=== PATIENT | female | born 1945 | race Caucasian/White ===

== ENCOUNTER 2016-11-13 07:03 | Inpatient (IN) | payer MEDICARE, BC ==
--- NOTE | ~2016-11-13 | DS ---
Discharge Summary [facility] [address] [facility] [place]. [address] NAME: ZORA ROBERTS : 45 STATUS : DIS IN PAT#: [id number] AGE: 71 ADM/REG DATE : 11/13/16 MR#: [id number] REPORT SERV DATE: 11/19/16 DICTATED BY: DEJON BARNETT DATE: 11/18/16 REPORT STATUS : Draft TRANSCRIBED BY: MODL DATE: 11/18/16 ADMISSION DATE: 11/13/2016 DISCHARGE DATE: 11/17/2016 DIAGNOSES: 1. Hypoxic respiratory failure, acute. 2. Chronic obstructive pulmonary disease exacerbation. 3. Pneumonia. 4. Sepsis. 5. Type 2 diabetes. 6. Sinus tachycardia, resolved. 7. History of chest pain with demand ischemia, resolved. CONSULTANTS: [employer], Dr. Deonte Kaba. HOSPITALIST: Dr. Tyree Metcalf; Dr. Barnett. IMAGING: CTA of the chest, with contrast showed no well-defined filling defect within the central pulmonary artery circulation or segmental pulmonary arteries to suggest PE, although evaluation of the peripheral pulmonary artery branches is not optimal. No thoracic aortic aneurysm nor dissection. Tree-in-bud infiltrates in the upper and lower lobes of both lungs. Chronic right middle lobe and posterior lingula consolidation, similar to January 2013, likely fibrosis. Subpleural nodules in the posterior left lower lobe measuring approximately millimeters. Mild upper lobe emphysematous changes in the lungs. Heavy coronary artery calcification and/or previous stenting. Stable left renal cyst. Suggest follow up CT scan of the chest in 12 months for further evaluation. Closer interval follow up in both lungs may be appropriate. Read by Dr. Lomax. HOSPITAL COURSE: This is a 71-year-old female with a past medical history of COPD and ongoing tobacco abuse, type 2 diabetes with peripheral neuropathy, chronic pain on chronic narcotics, presented with shortness of breath, dyspnea on exertion with generalized body aches with a positive cough with productive of brown sputum. She was admitted to the Hospitalist Service with sepsis and acute hypoxic respiratory failure and some signs of chest pain. The patient was initiated on antibiotics and bronchodilators. Blood cultures were ordered. Also, Cardiology with Dr. Deonte Kaba was consulted for the patient's complaint of chest discomfort and diagnosed with demand ischemia secondary to the patient's sepsis and COPD exacerbation with pneumonia. They recommended no further cardiac testing anticipated. The patient was initially admitted on a heparin drip, per Dr. Metcalf, however, during the patient's hospital course, the patient had severe noncompliance, at times refused appropriate medical management and required educating multiple times by physicians, nursing staff, including the house microsoft exchange administrator. The patient also was educated on tobacco abuse cessation, several times the patient demanding to leave the [facility]x without oxygen. The patient remained alert and oriented x3. Also, the patient was very adamant about not being discharged with oxygen at the time of discharge. Therefore, the patient was encouraged to work aggressively with pulmonary toileting with incentive spirometer as instructed as well as to continue with her medical management with bronchodilators and antibiotics. On Discharge Summary [address] [place]. [address] NAME: ZORA ROBERTS : 45 STATUS : DIS IN PAT#: [id number] AGE: 71 ADM/REG DATE : 11/13/16 MR#: [id number] REPORT SERV DATE: 11/19/16 DICTATED BY: DEJON BARNETT DATE: 11/18/16 REPORT STATUS : Draft TRANSCRIBED BY: DAVID DATE: 11/18/16 11/17/2016, the patient once again began threatening to leave AMA. The patient was informed about the risks of leaving against medical advice. The patient at that time was still on 4 L of oxygen requirement and the patient was refusing to be discharged to home with oxygen, therefore medical staff working with the patient to attempt to improve pulmonary toileting more in order to wean the patient off oxygen prior to discharge, however, the patient demanded to be discharged that day. The patient's family member, her niece, who is her primary caregiver, was informed, who also encouraged the patient to comply, however, the patient refused. Also, the patient stated that she refused to continue with any oxygen. The patient was informed that not continuing with oxygen at this time can be lethal and very dangerous to health and/or patient could , and the patient still refused and stated that she was going to home without oxygen and signed out against medical advice and family/friend reportedly took the patient home. We made several attempts on multiple occasions to reason with Ms. Roberts who refused to compliant with her medical treatment. The patient stated that her brother on oxygen, and she refused to remain on it although may be lifesaving. DICTATED BY: Shannon ThomasH/DAVID Dejon Barnett M.D. / [id number] CC: Shannon Thomas M.D.
--- NOTE | ~2016-11-13 | CN ---
Consultation Report [facility] [address] [place]. [address] NAME: ZORA ROBERTS : 45 STATUS : ADM IN PAT#: [id number] AGE: 71 ADM/REG DATE : 11/13/16 MR#: [id number] REPORT SERV DATE: 11/13/16 DICTATED BY: DEONTE BEARD DATE: 11/13/16 REPORT STATUS : Draft TRANSCRIBED BY: MODL DATE: 11/13/16 CARDIOLOGY CONSULTATION DATE OF CONSULTATION: 11/13/2016 PRIMARY EYE PHYSICIAN: Dr. Schultz. REASON FOR CONSULTATION: Demand ischemia. HISTORY OF PRESENT ILLNESS: Ms. Roberts is a 71-year-old female presented to the ER with four to five days of worsening shortness of breath, productive cough, subjective fevers, and diffuse myalgias. She has a known history of coronary artery disease and COPD with ongoing tobacco use. On presentation to the ER, she appeared ill and had a sinus tachycardia at 130 beats per minute. She underwent a CTA of the chest due to shortness of breath and sinus tachycardia that showed no pulmonary embolism and a normal thoracic aorta. A "tree-in-bud" diffuse infiltrative pattern was seen suggestive of viral versus atypical pneumonia. She is admitted to the Hospitalist Service and given nebulizers, steroids, antibiotics, and oxygen, and now feels better. Heart rate has improved to the 70s. She still has complaints of diffuse myalgias. She has had no symptoms of exertional angina. She has had no palpitations or syncope. She denies lower extremity edema. On arrival, her troponin was 0.09. She had sinus tachycardia with underlying right bundle- branch block that was chronic and unchanged. Of note, she did undergo an evaluation in 05/2016 with an echocardiogram demonstrating preserved EF of 55% with a focal basal inferior wall infarct that was holding chronic. A 05/2016 coronary angiography showed diffuse nonobstructive CAD with patent stents. Moderate disease in LAD with a negative FFR. She had diffuse branch vessel and distal disease noted for medical management only. REVIEW OF SYSTEMS: Pertinent positives and negatives are as outlined above, all others negative. PAST MEDICAL HISTORY: 1. CAD, status post LAD and RCA LISANDRO. 2. COPD. 3. Ongoing tobacco use. 4. Hypertension. 5. Hyperlipidemia. 6. Diabetes mellitus type 2. 7. Peripheral arterial disease. CURRENT HOME MEDICATIONS: 1. Atorvastatin 40 mg at bedtime. 2. Aspirin 81 mg daily. 3. Plavix 75 mg daily. Consultation Report [place] [address] [place]. [address] NAME: ZORA ROBERTS : 45 STATUS : ADM IN PAT#: [id number] AGE: 71 ADM/REG DATE : 11/13/16 MR#: [id number] REPORT SERV DATE: 11/13/16 DICTATED BY: DEONTE BEARD DATE: 11/13/16 REPORT STATUS : Draft TRANSCRIBED BY: DAVID DATE: 11/13/16 4. Isosorbide 40 mg daily. 5. Metoprolol 100 mg in the morning and 50 mg in the evening. 6. Clonidine 0.2 mg daily p.r.n. 7. Xanax as directed. 8. ProAir inhaler. 9. Vitamin D supplementation. 10.Celexa 20 mg daily. 11.Gabapentin 300 mg three times daily. 12.[place] p.r.n. 13.Robaxin 250 mg twice daily. 14.Pantoprazole 40 mg daily. 15.Theophylline as directed. 16.Requip 1.5 mg at bedtime. 17.Ambien 5 mg at bedtime p.r.n. ALLERGIES: INCLUDE WHICH IS EXACERBATED GI BLEED. CODEINE WITH AN UNKNOWN REACTION. TETRACYCLINE WITH AN UNKNOWN REACTION. STADOL WITH AN UNKNOWN REACTION. SOCIAL HISTORY: She has ongoing tobacco use. She does not consume alcohol or use illegal drugs. FAMILY HISTORY: Significant for CAD. PHYSICAL EXAMINATION: VITALS: Temperature is 99, pulse is 70, respirations 18, and blood pressure is 120/70. GENERAL: A well-developed, chronically ill-appearing female, who is currently in no acute distress. HEENT: Sclerae anicteric, mucous membranes moist and without lesions. NECK: No jugular venous distention. No hepatojugular reflux, carotid upstrokes 2+ and symmetric, there are no carotid or subclavian bruit. LUNGS: Moderately decreased breath sounds throughout with no wheezes or crackles. CARDIOVASCULAR: Regular with a distant S1 and S2. No audible S3. No audible murmurs. No parasternal lift. ABDOMEN: Soft, nontender. Bowel sounds positive and normoactive. PULSES: Radial and dorsalis pedis pulses are all 1+ and symmetric. EXTREMITIES: Warm, and there is no edema. SKIN: No clubbing or cyanosis, no rashes or lesions. IMPRESSION: 1. Demand ischemia. 2. Sepsis syndrome, presenting with tachycardia, fevers, and leukocytosis. 3. Acute exacerbation of chronic obstructive pulmonary disease. 4. Pneumonia, viral versus atypical bacterial. 5. Coronary artery disease, status post PCI. 6. Peripheral arterial disease. Consultation Report [place] [facility] [id number]. [address] NAME: ZORA ROBERTS : 45 STATUS : ADM IN [facility]#: [id number] AGE: 71 ADM/REG DATE : 11/13/16 MR#: [id number] REPORT SERV DATE: 11/13/16 DICTATED BY: DEONTE BEARD. DATE: 11/13/16 REPORT STATUS : Draft TRANSCRIBED BY: MODL DATE: 11/13/16 7. Hypertension. 8. Hyperlipidemia. 9. Diabetes mellitus 2. 10.Ongoing tobacco use. PLAN: Ms. Roberts's presentation is most consistent with demand ischemia due to her known underlying CAD, recently assessed in May of this year with stable findings and her acute presentation with acute exacerbation of COPD, pneumonia, and sepsis syndrome. I agree with home medications as well as heparin for now while troponin is being trended. No further cardiac testing anticipated unless clinical symptoms or significant upward trend in troponin dictate. AEA/LAURIEL Deonte Beard M.D. / [id number] CC: Tyree Metcalf M.D. Joe Torres M.D.
--- NOTE | ~2016-11-13 | HP ---
History And Physical [place] [address] [facility] [place]. [address] NAME: ZORA ROBERTS : 45 STATUS : ADM IN PAT#: [id number] AGE: 71 ADM/REG DATE : 11/13/16 MR#: [id number] REPORT SERV DATE: 11/13/16 DICTATED BY: SYLVIA METCALF DATE: 11/13/16 REPORT STATUS : Draft TRANSCRIBED BY: MODL DATE: 11/13/16 DATE OF ADMISSION: 11/13/2016 IDENTIFYING DATA: A 71-year-old white female, whose PCP is Dr. Joe Torres, Cardiology, Dr. Schultz. CHIEF COMPLAINT: Shortness of breath and generalized body pain. HISTORY OF PRESENT ILLNESS: This history of present illness is obtained by talking directly with the patient as well as the ER nurse and the ER physician, Dr. Ronal Giraldo, and I reviewed the ER chart and [employer]. The patient states she was doing yard sale to try to raise money for a [employer]. She camped out in a tent for a couple of days this week, then a couple days prior to this admission started to have generalized pain all over, increased cough, difficulty voiding urine, dysuria, right lower quadrant pain with voiding, increased sputum that was brown in color, and it finally got so bad she came to the emergency room where she was noted to have tachycardia, hypoxia, and bilateral pulmonary infiltrates, and we were asked to admit her to the hospital. REVIEW OF SYSTEMS: She has had subjective fever. She has had some left anterior chest pain, constant, lasting for many hours worse with a cough. She has nausea. She had diarrhea a day ago. She has had occasional leg edema. She has chronic headaches that she calls migraines. She states her weight has gone up and down. She denies vomiting, bright red blood per rectum, melena, or rash. ALLERGIES: SHE CLAIMS ALLERGY TO CODEINE, TETRACYCLINE, SULFA, STADOL. PAST MEDICAL HISTORY: She denies any history of seizure, liver disease, chronic kidney disease, kidney stones, thyroid disease, or sleep apnea. She was here May 2016 with some slurred speech, some right-sided facial droop. MRI of the brain at that time unremarkable. MRA of the brain, 50% left M1 stenosis. MRA of the neck unremarkable. She was thought to possibly have had a TIA. Heart cath done on 06/15/2016 showed extensive stenting of the proximal to distal RCA with patent stents, extensive stenting from the proximal to the mid LAD and distal LAD, moderate disease within the mid LAD, non flow limiting. Moderate non flow limiting disease within the left circumflex. Distal branch vessel disease involving a diminutive distal segment of the second obtuse marginal. She was recommended for overall medical therapy, although she tells me that she had new stents put in. Echocardiogram performed on 06/14/2016 showed left atrium 2.9 cm, left ventricular ejection fraction 50-55%, small area of inferior and inferior septal basilar hypokinesis. The patient has a history of at least seven prior stents. She had an old septal [place] in 2001. She has a history of COPD. She still smokes, she is trying to cut down. She is down from a History And Physical [address] [address] NAME: ZORA ROBERTS : 45 STATUS : ADM IN [facility]#: [id number] AGE: 71 ADM/REG DATE : 11/13/16 MR#: [id number] REPORT SERV DATE: 11/13/16 DICTATED BY: SYLVIA METCALF DATE: 11/13/16 REPORT STATUS : Draft TRANSCRIBED BY: DAVID DATE: 11/13/16 pack a day to half pack per day. She smoked for over 55 years. She has hypertension. She has had greater than 10 years of diabetes mellitus type 2. She has peripheral neuropathy. She has a history of depression, anxiety, insomnia, narcolepsy, restless legs, and chronic pain involving fibromyalgia, back pain, headache pain, and peripheral neuropathy pain. She had prior injury to her right eye, she has very little vision left in it. She has had previous stomach ulcer. She had uterine cancer treated with surgery. She has had herpes zoster in the past. HOME MEDICATIONS: Albuterol p.r.n., Xanax 1 mg t.i.d. p.r.n., aspirin 81 mg daily, Plavix 75 mg daily, Lipitor 40 mg daily, biotin 5000 mcg daily, vitamin D 1000 units daily, Celexa 20 mg daily, Catapres 0.2 mg daily, gabapentin 300 mg t.i.d., Fisk 7.5 one q.i.d. p.r.n. pain., Monoket 40 mg daily, metformin extended release 500 mg b.i.d., Robaxin 250 mg twice a day, metoprolol 100 mg every morning and 50 mg every evening, Protonix 40 mg daily, Robitussin liquid p.r.n. cough, Requip 1.5 mg at bedtime, Uniphyl 200 mg daily, and Ambien 5 mg at bedtime p.r.n. insomnia. PAST SURGICAL HISTORY: She has had cholecystectomy, hysterectomy. She had an exploratory laparoscopy. She had some surgical attempt on her right eye. FAMILY HISTORY: Mother had congestive heart failure. Dad reportedly had prostate and colon cancer. Siblings with heart attacks, children with heart disease. DIAGNOSTIC DATA: Chest x-ray done as a single portable film today reveals some bibasilar haziness especially in the right lower lobe and lingula per my interpretation. CT scan of the chest as a CTA performed in the emergency room reveals no evidence of central pulmonary embolism. Poor visualization of the peripheral vessels because of movement. She has bilateral tree in bud infiltrates in upper and lower lobes, felt to be infectious or inflammatory. No evidence of thoracic aorta aneurysm or dissection. Chronic medial right middle lobe, posterior lingular consolidation consistent with fibrosis all the way back to 02/10/2013. Subpleural nodule posterior left lower lobe, stable since 02/10/2013. Mild upper lobe COPD, bilateral. Heavy coronary calcification and stenting. Left renal cyst noted. EKG done today at 0356 hours reveals sinus tachycardia at 132 beats per minute. An incomplete right bundle-branch block. She has T-wave inversions in II, III, aVF, as well as V1 through V4. Arterial blood gas done today on room air: PH 7.42, pCO2 of 38, PO2 of 54, bicarbonate 24.2. Sodium 139, potassium 3.4, chloride 104, CO2 is 26, BUN 28, creatinine 1.12, glucose 223, albumin 3.0, globulin 4.7. The rest of the CMP is normal. Troponin 0.91. B-natriuretic peptide elevated at 253.8. White count elevated at 17, hemoglobin 14.5, platelets 270,000. I did not get a baseline PT, PTT, and INR, and she is already on a heparin drip. Urinalysis straight cath in the ER because she stated she could not void, protein 30, specific gravity 1.041, the rest of it was unremarkable. PHYSICAL EXAMINATION: VITAL SIGNS: Temp is 98, pulse 115, respirations 24, blood pressure 120/70, O2 saturation is currently 94% on 2 L. GENERAL: Well-developed, older female who appears very tired with mild shortness of breath. HEENT: Head is atraumatic. Pupil on the right side shows trauma with an abnormal displaced pinpoint pupil inferiorly and medially with minimal vision of that right eye. Pupil History And Physical [address] [place]. [address] NAME: ZORA ROBERTS : 45 STATUS : ADM IN PAT#: [id number] AGE: 71 ADM/REG DATE : 11/13/16 MR#: [id number] REPORT SERV DATE: 11/13/16 DICTATED BY: SYLVIA METCALF DATE: 11/13/16 REPORT STATUS : Draft TRANSCRIBED BY: DAVID DATE: 11/13/16 reaction on the left is normal. Extraocular motions are intact. No scleral icterus noted. Ear canals and TMs unremarkable. Normal hearing bilaterally. Nose, noninflamed externally. Septum midline. Nares patent. Mouth, moist. Good gag. No redness of the throat, gums, or lips. NECK: Supple. No lymph node or thyroid enlargement. She has a bug bite about a millimeter in diameter in left neck right at the sternocleidomastoid in the midportion, mildly red. Carotids have good pulses. No bruits. LUNGS: Prolonged expiratory phase, 2+ rhonchi in all gamez with mildly increased respiratory effort. HEART: Tachycardic and regular without gallop, click, murmur, or rub. ABDOMEN: Bowel sounds positive. Soft. Nondistended, nontender. No masses. No organomegaly. No bruits. EXTREMITIES: Warm, good pulses. No clubbing, no cyanosis, no edema. No actively inflamed skin or joints other than that bug bite described under neck above. NEUROLOGICAL: She is alert, she is oriented. She is complaining of pain all over her body. Her motor strength is 2/5 in her legs, 3/5 in her hands bilaterally. No Babinski. No clonus noted. Cranial nerves 2 through 12 grossly normal. ASSESSMENT: 1. Subjective fever with increased cough, change in sputum production, and increased shortness of breath which is most consistent with acute exacerbation of chronic obstructive pulmonary disease in an active smoker, not on home oxygen, and she has bilateral upper lobe infiltrates consistent with community-acquired pneumonia. 2. Chest pain, probably demand ischemia, less likely non ST-elevation myocardial infarction. 3. Acute hypoxic respiratory failure. 4. I doubt urinary tract infection, but she may have some urinary retention symptoms. 5. Sinus tachycardia probably due to subjective fever, chest pain, and acute hypoxic respiratory failure but also could be aggravated by her theophylline. 6. See past medical history. PLAN: 1. Admit to cardiac telemetry unit. 2. Continue heparin drip for now and get a series of cardiac enzymes. Also ask Cardiology to see her in consultation. 3. We will check a procalcitonin as well as urine antigens. We are also going to check theophylline level and TSH. We will also have nursing check postvoid bladder scan. We will continue azithromycin and Rocephin. We will continue supplemental oxygen and nebulizer treatments. Blood cultures and sputum cultures already obtained. RSG/MODL Sylvia Metcalf M.D. History And Physical [address] [address] NAME: ZORA ROBERTS : 45 STATUS : ADM IN [facility]#: [id number] AGE: 71 ADM/REG DATE : 11/13/16 MR#: [id number] REPORT SERV DATE: 11/13/16 DICTATED BY: SYLVIA METCALF DATE: 11/13/16 REPORT STATUS : Draft TRANSCRIBED BY: MODL DATE: 11/13/16 / [id number] CC: Shannon Magana Jr., M.D.
[2016-11-13 04:31] LABS: BE (BASE EXCESS) -0.1 MEQ/L (0 +/- 2.5); HCO3 (ACTUAL BICARBONATE) 24.2 MEQ/L (23-27); INSTRUMENT SERIAL # 8087; METHEMOGLOBIN 0.4 % (0-3); PCO2 (CO2 TENSION) 38 MMHG (35-45); PO2 (O2 TENSION) 54 MMHG (79-93); pH 7.42 (7.37-7.43)
[2016-11-13 04:32] LABS: O2 CONTENT 18.2 VOL% (18-24); OPERATOR ID 17589; SAMPLE Arterial
[2016-11-13 04:44] LABS: BASOPHILS 0.1 %; BASOPHILS ABSOLUTE 0.01 10/3/uL (0.0-0.16); EOSINOPHILS 0.1 %; EOSINOPHILS ABSOLUTE 0.02 10/3/uL (0.0-0.53); HEMATOCRIT 42.8 % (36.0-48.0); HEMOGLOBIN 14.5 g/dL (12.0-16.0); IMMATURE GRANULOCYTES 0.3 %; IMMATURE GRANULOCYTES ABSOLUTE 0.05 10/3/uL (0.0-0.11); LYMPHOCYTES 16.1 %; LYMPHOCYTES ABSOLUTE 2.73 10/3/uL (0.67-4.30); MEAN CORPUS HGB CONC 33.9 g/dL (32.0-36.0); MEAN CORPUSCULAR HEMOGLOB 30.3 pg (26.0-34.0); MEAN CORPUSCULAR VOLUME 89.4 fL (80-100); MEAN PLATELET VOLUME 10.2 fL (9.2-13.0); MONOCYTES 8.9 %; MONOCYTES ABSOLUTE 1.52 10/3/uL (0.21-1.20); NEUTROPHILS 74.5 %; NEUTROPHILS ABSOLUTE 12.67 10/3/uL (2.02-8.40); RBC DISTRIBUTION WIDTH 13.7 % (12.0-16.0); RED CELL COUNT 4.79 10/6/uL (4.0-5.6)
[2016-11-13 04:45] LABS: ER CBC TAT 0 Hrs 05 Mins; MANUAL DIFF NO %; PLATELET COUNT 270 10/3/uL (150-400)
[2016-11-13 05:04] LABS: A/G RATIO 0.6 (0.7-1.9); ALKALINE PHOSPHATASE 86 U/L (45-117); BUN (BLOOD UREA NITROGEN) 28 MG/DL (6-23); CALCIUM, SERUM 9.4 MG/DL (8.5-10.4); CHLORIDE, SERUM 104 MMOL/L (96-112); CO2 (CARBON DIOXIDE) 26 MMOL/L (24-34); CREATININE 1.12 MG/DL (0.55-1.02); GFR AFRICAN AMERICAN 57 ML/MIN (>=60); GFR NON AFRICAN AMERICAN 49 ML/MIN (>=60); GLOBULIN 4.7 G/DL (2.5-4.1); GLUCOSE, SERUM 223 MG/DL (60-99); POTASSIUM, SERUM 3.4 MMOL/L (3.5-5.3); SGOT(AST) 124 U/L (5-40); SGPT(ALT) 36 U/L (5-65); SODIUM, SERUM 139 MMOL/L (135-148); TOTAL BILIRUBIN 0.9 MG/DL (0-1.2); TOTAL PROTEIN 7.7 G/DL (6.0-8.5); TROPONIN I 0.91 NG/ML (<0.05)
[2016-11-13 06:31] LABS: ASCORBIC ACID (UR NOT ORDER) NEG (NEG); BILIRUBIN, URINE NEGATIVE (NEG); ER URINALYSIS TAT 0 Hrs 10 Mins; KETONE, URINE NEGATIVE (NEG); LEUKOCYTE ESTERASE(NOT OR NEG (NEG); NITRITE (URINE) NEG (NEG); WBC (NOT ORDERED) (RFLEX) 2 (0-5)
[~2016-11-13 07:03] MED LIST: AMB10 PO; AMB5 PO; ANOROELLIPTA INH; ASAB PO; BIOTIN5 MG PO; CAT1 PO; CAT2 PO; CELEXA20 PO; CO Q-10100 MG PO; DCN100 PO; FLEX PO; FLONASE NAS; FOLAMIN PO; GLUCPH PO; GLUMETZA500 MG PO; HALF81 PO; LANTUS SC; LEXAPRO20 PO; LIPITOR40; LIPITOR40 PO; LOP50 PO; LYRICA50 PO; LYRICA75 PO; METHOC500B PO; MONOKET20 PO; NEUR100 PO; NEUR300 PO; NEXIUM40 PO; NICODERM C21 MG/241 TOP; NORCO1 TA2 PO; NOVOLOG SC; NTG150 SL; P10 PO; PLAVIX PO; PR25 PO; PRAVAC PO; PREM625 PO; PRILOSEC40 MG PO; PROAIR HFA INH; PROMEGA PO; PROTONIX PO; PROVIGIL2 PO; REQUIP1 PO; ROBITUSS23 PO; SYMBICORT 160/41 INH INH; T200 PO; THEO24300 PO; TOPXL50 PO; TOUJEO SC; TRAZ50 PO; TRICOR145 PO; UNIPHYL 400 MG400 MG PO; VENTOLIN HFA INH; VITAMIN B-1500 MG PO; VITAMIN D31000 UNIT PO; VITC500 PO; VYTORIN 10/80 T1 TAB PO; XANAX1 MG PO
[2016-11-13 08:12] LABS: LACTATE 2.6 MMOL/L (0.3-2.4)
[2016-11-13] MEDS ORDERED: GGDM5ML PO (09:08)
[2016-11-13] MEDS ORDERED: NTG150 SL (09:11)
[2016-11-13] MEDS ORDERED: MARLYN FORMULA 50 PO (09:14)
[2016-11-13 13:32] LABS: CALCIUM, SERUM 9.2 MG/DL (8.5-10.4); CHLORIDE, SERUM 102 MMOL/L (96-112); CO2 (CARBON DIOXIDE) 24 MMOL/L (24-34); GFR AFRICAN AMERICAN 58 ML/MIN (>=60); GFR NON AFRICAN AMERICAN 50 ML/MIN (>=60); SODIUM, SERUM 136 MMOL/L (135-148); THEOPHYLLINE 3.6 MCG/ML (8.0-15.0)
[2016-11-13 13:34] LABS: BUN (BLOOD UREA NITROGEN) 23 MG/DL (6-23); GLUCOSE, SERUM 325 MG/DL (60-99); TROPONIN I 0.39 NG/ML (<0.05); ULTRASENSITIVE TSH 0.142 MCIU/ML (0.358-3.740)
[2016-11-13 13:44] LABS: PROCALCITONIN 0.13 ng/mL (<0.5)
[2016-11-13 14:50] LABS: FREE T4 1.35 NG/DL (0.76-1.46)
[2016-11-13 21:45] LABS: CK-MB 16.6 NG/ML
[2016-11-13 21:47] LABS: CKMB INDEX (NOT ORD) 0.6; TROPONIN I 0.21 NG/ML (<0.05)
[2016-11-14 07:02] LABS: BASOPHILS 0.1 %; BASOPHILS ABSOLUTE 0.01 10/3/uL (0.0-0.16); EOSINOPHILS 0 %; HEMOGLOBIN 12.8 g/dL (12.0-16.0); IMMATURE GRANULOCYTES 0.5 %; IMMATURE GRANULOCYTES ABSOLUTE 0.06 10/3/uL (0.0-0.11); LYMPHOCYTES 8.3 %; LYMPHOCYTES ABSOLUTE 0.99 10/3/uL (0.67-4.30); MEAN CORPUS HGB CONC 33.7 g/dL (32.0-36.0); MEAN CORPUSCULAR HEMOGLOB 29.9 pg (26.0-34.0); MEAN CORPUSCULAR VOLUME 88.8 fL (80-100); MEAN PLATELET VOLUME 10.2 fL (9.2-13.0); MONOCYTES 5.3 %; MONOCYTES ABSOLUTE 0.63 10/3/uL (0.21-1.20); NEUTROPHILS 85.8 %; NEUTROPHILS ABSOLUTE 10.31 10/3/uL (2.02-8.40); PLATELET COUNT 286 10/3/uL (150-400); RBC DISTRIBUTION WIDTH 13.4 % (12.0-16.0); RED CELL COUNT 4.28 10/6/uL (4.0-5.6)
[2016-11-14 07:09] LABS: MANUAL DIFF NO %
[2016-11-14 07:11] LABS: BUN (BLOOD UREA NITROGEN) 22 MG/DL (6-23); CALCIUM, SERUM 9.1 MG/DL (8.5-10.4); CHLORIDE, SERUM 100 MMOL/L (96-112); CREATININE 0.89 MG/DL (0.55-1.02); GFR AFRICAN AMERICAN 76 ML/MIN (>=60); GFR NON AFRICAN AMERICAN 65 ML/MIN (>=60); POTASSIUM, SERUM 4.4 MMOL/L (3.5-5.3); SODIUM, SERUM 133 MMOL/L (135-148)
[2016-11-14 07:12] LABS: CO2 (CARBON DIOXIDE) 30 MMOL/L (24-34); GLUCOSE, SERUM 222 MG/DL (60-99)
[2016-11-15 05:34] LABS: BASOPHILS 0.1 %; BASOPHILS ABSOLUTE 0.01 10/3/uL (0.0-0.16); EOSINOPHILS 0.1 %; EOSINOPHILS ABSOLUTE 0.01 10/3/uL (0.0-0.53); HEMATOCRIT 38.8 % (36.0-48.0); IMMATURE GRANULOCYTES 0.5 %; IMMATURE GRANULOCYTES ABSOLUTE 0.06 10/3/uL (0.0-0.11); LYMPHOCYTES 21.5 %; LYMPHOCYTES ABSOLUTE 2.59 10/3/uL (0.67-4.30); MEAN CORPUS HGB CONC 33.5 g/dL (32.0-36.0); MEAN CORPUSCULAR HEMOGLOB 30.3 pg (26.0-34.0); MEAN CORPUSCULAR VOLUME 90.4 fL (80-100); MEAN PLATELET VOLUME 10.1 fL (9.2-13.0); MONOCYTES 7.5 %; MONOCYTES ABSOLUTE 0.91 10/3/uL (0.21-1.20); NEUTROPHILS 70.3 %; NEUTROPHILS ABSOLUTE 8.48 10/3/uL (2.02-8.40); PLATELET COUNT 285 10/3/uL (150-400); RBC DISTRIBUTION WIDTH 13.5 % (12.0-16.0); RED CELL COUNT 4.29 10/6/uL (4.0-5.6); WHITE BLOOD CELLS 12.1 10/3/uL (4.5-10.5)
[2016-11-15 05:44] LABS: MANUAL DIFF NO %
[2016-11-15 05:54] LABS: A/G RATIO 0.7 (0.7-1.9); ALBUMIN 2.8 G/DL (3.5-5.0); ALKALINE PHOSPHATASE 82 U/L (45-117); CALCIUM, SERUM 9.9 MG/DL (8.5-10.4); CHLORIDE, SERUM 102 MMOL/L (96-112); CO2 (CARBON DIOXIDE) 29 MMOL/L (24-34); CREATININE 0.88 MG/DL (0.55-1.02); GFR AFRICAN AMERICAN 77 ML/MIN (>=60); GFR NON AFRICAN AMERICAN 66 ML/MIN (>=60); GLOBULIN 4.2 G/DL (2.5-4.1); POTASSIUM, SERUM 3.9 MMOL/L (3.5-5.3); SGOT(AST) 48 U/L (5-40); SGPT(ALT) 35 U/L (5-65); SODIUM, SERUM 137 MMOL/L (135-148)
[2016-11-15 05:55] LABS: BUN (BLOOD UREA NITROGEN) 17 MG/DL (6-23); CPK 902 U/L (0-200); GLUCOSE, SERUM 154 MG/DL (60-99); TOTAL BILIRUBIN 0.4 MG/DL (0-1.2)
[2016-11-16 23:01] LABS: ASCORBIC ACID (UR NOT ORDER) NEG (NEG); BILIRUBIN, URINE NEGATIVE (NEG); KETONE, URINE NEGATIVE (NEG); LEUKOCYTE ESTERASE(NOT OR NEG (NEG); WBC (NOT ORDERED) (RFLEX) < 1 (0-5)
[2016-11-18] MEDS ORDERED: XANAX1 MG PO (22:01)
[2016-11-18] MEDS ORDERED: PROAIR HFA INH (22:01)
[2016-11-18] MEDS ORDERED: HALF81 PO (22:02)
[2016-11-18] MEDS ORDERED: MERIBIN5 MG PO (22:02)
[2016-11-18] MEDS ORDERED: LIPITOR40 PO (22:02)
[2016-11-18] MEDS ORDERED: VITAMIN D31000 UNIT PO (22:03)
[2016-11-18] MEDS ORDERED: CAT2 PO (22:03)
[2016-11-18] MEDS ORDERED: CELEXA20 PO (22:03)
[2016-11-18] MEDS ORDERED: PLAVIX PO (22:03)
[2016-11-18] MEDS ORDERED: NEUR300 PO (22:04)
[2016-11-18] MEDS ORDERED: [UNRECOGNIZED DRUG - OTHER] PO (22:05)
[2016-11-18] MEDS ORDERED: MONOKET20 PO (22:06)
[2016-11-18] MEDS ORDERED: NORCO1 TA2 PO (22:06)
[2016-11-18] MEDS ORDERED: FORTAMET500 MG PO (22:07)
[2016-11-18] MEDS ORDERED: METHOC500B PO (22:08)
[2016-11-18] MEDS ORDERED: LOP50 PO (22:09)
[2016-11-18] MEDS ORDERED: PROTONIX PO (22:09)
[2016-11-18] MEDS ORDERED: NITROSTAT0.4 MG SL (22:09)
[2016-11-18] MEDS ORDERED: REQUIP1 PO (22:10)
[2016-11-18] MEDS ORDERED: [UNRECOGNIZED DRUG - CODE] PO (22:11)
[2016-11-18] MEDS ORDERED: MARLYN FORMULA 50 PO (22:12)
[2016-11-18] MEDS ORDERED: AMB5 PO (22:14)
[2016-11-22] MEDS ORDERED: NORV5 PO (10:53)
[2016-11-22] MEDS ORDERED: SYMBICORT 160/41 INH INH (10:59)
[2016-11-22] MEDS ORDERED: P10 PO (11:00)
[2016-11-22] MEDS ORDERED: HABIT21 TOP (11:03)
[2016-11-22] MEDS ORDERED: FLORASTOR250 MG PO (11:04)
[2016-11-22] MEDS ORDERED: CAT1 PO (11:07)
== END 2016-11-17 17:28 | disposition left against medical advice (07) | DRG 871 ==
LOC: ER 07:03 → 7NO 09:29
PROVIDERS: Hospitalist; Internal Medicine; Internal Medicine Cardiovascular Disease; Specialist
DX: A41.9 Sepsis, unspecified organism (principal); J18.9 Pneumonia, unspecified organism; J96.01 Acute respiratory failure with hypoxia; I24.8 Other forms of acute ischemic heart disease; J44.1 Chronic obstructive pulmonary disease with (acute) exacerbation; R00.0 Tachycardia, unspecified; E11.40 Type 2 diabetes mellitus with diabetic neuropathy, unspecified; F17.210 Nicotine dependence, cigarettes, uncomplicated; G89.29 Other chronic pain; I45.10 Unspecified right bundle-branch block; I25.10 Atherosclerotic heart disease of native coronary artery without angina pectoris; I73.9 Peripheral vascular disease, unspecified; E78.5 Hyperlipidemia, unspecified; F32.9 Major depressive disorder, single episode, unspecified; F41.9 Anxiety disorder, unspecified; G25.81 Restless legs syndrome; Z79.891 Long term (current) use of opiate analgesic; Z88.5 Allergy status to narcotic agent; Z79.82 Long term (current) use of aspirin; Z95.5 Presence of coronary angioplasty implant and graft; Z91.19 Patient's noncompliance with other medical treatment and regimen; Z88.1 Allergy status to other antibiotic agents; Z79.02 Long term (current) use of antithrombotics/antiplatelets; Z79.84 Long term (current) use of oral hypoglycemic drugs
CPT/HCPCS: 36600; 71010; 71275; 80048; 80053; 80198; 81001; 82550; 82553; 82805; 82962; 83036; 83605; 83735; 83880; 84145; 84439; 84443; 84484; 85025; 85730; 87040; 87070; 87205; 87449; 93005; 94640; 96374; 99285; A9270-GY; J0456; J1940; J2405; Q9967